=== PATIENT | female | born 1980 | race Two or more races ===

== ENCOUNTER 2018-10-07 17:42 | Emergency (ER) | payer SELFPAY ==
[~2018-10-07] VITALS: Ht 165.1 cm; Wt 76.2 kg
[2018-10-07 17:50] VITALS: BP 139/87
[2018-10-07 18:00] VITALS: BP 139/87
--- NOTE | 2018-10-07 18:46 | Emergency Room Report ---
History of Present Illness General Chief Complaint: General Complaint Source: Patient Present Illness HPI 38-year-old female patient presents ER complaining of headache and tingling sensation over the left lower half of her face. Denies history of stroke or heart disease. Denies taking blood thinners. Denies fever, chest pain, shortness of breath. Reports symptoms of been present for one day. Reports took Tylenol for pain symptoms. Denies vomiting or vision changes. Denies photophobia or phonophobia. Reports headache over the frontal sinuses. Denies runny nose. Denies neck pain. Denies abdominal pain. Denies sore throat, tooth pain, facial swelling. Allergies: Coded Allergies: No Known Allergies (Unverified , 10/07/18) Patient History Past Medical History: see triage record Last Menstrual Period: 09/02/18 Reviewed Nursing Documentation: PMH: Agreed; PSxH: Agreed Nursing Documentation-PMH Past Medical History: No Stated History Review of Systems All Other Systems: negative except mentioned in HPI Physical Exam Vital Signs Date Time Temp Pulse Resp B/P (MAP) Pulse Ox O2 Delivery O2 Flow Rate FiO2 10/07/18 17:50 98.1 85 18 139/87 98 Room Air Sp02 EP Interpretation: reviewed, normal General Appearance: well appearing, no apparent distress, alert, GCS 15, non- toxic Head: normocephalic, atraumatic, other - frontal sinuses tender to palpation bilaterally, no maxillary sinus tenderness to palpation Eyes: bilateral eye normal inspection, bilateral eye PERRL, bilateral eye EOMI ENT: hearing grossly normal, normal pharynx, no angioedema, normal voice, TMs + canals normal, uvula midline, moist mucus membranes, other - no tenderness to palpation of teeth, no gum erythema or edema Neck: full range of motion, no bony tend Respiratory: lungs clear, normal breath sounds, no rhonchi, no respiratory distress, no accessory muscle use, no wheezing, speaking full sentences Cardiovascular #1: regular rate, rhythm, no edema Musculoskeletal: back normal, digits/nails normal, gait/station normal, normal range of motion, non-tender Neurologic: alert, oriented x3, responsive, director telecommunications III-XII nml as tested, motor strength/tone normal, SLR negative, sensory intact, cerebellar normal, normal gait, speech normal Psychiatric: mood/affect normal Skin: no rash Medical Decision Making PA Attestation Dr. Allison is my supervising Physician whom patient management has been discussed with. Diagnostic Impression: Primary Impression: Sinus headache ER Course Pt. presents to the ED c/o headache and tingling over left lower portion of face. Ddx considered but are not limited to migraine, cluster headache, tension headache, sinus headache, sinusitis, trigeminal neuralgia, tooth infection, temporal arteritis, otitis media, otitis externa., Vieira's palsy. negative Kernig, negative Brudzinski, patient afebrile, low suspicion for meningitis. cranial nerves intact as tested, no focal deficits, no facial droop, low suspicion for vieira's palsy or cerebrovascular event, does not require further workup or labs at this time. no tenderness to palpation over temporal arteries, no vision changes, patient afebrile, low suspicion for temporal arteritis. Vital signs: are WNL, pt. is afebrile ER COURSE: physical exam shows tenderness to palpation over frontal sinuses. Likely sinusitis causing headache. Symptoms likely related to sinus symptoms. Does not require abx at this time. Provide patient with medication. Follow-up with dentist. Follow with primary care provider. Discuss further treatment and referral. ER precautions given. DISCHARGE: At this time pt is stable for d/c to home. Patient is resting comfortably, in no acute distress, nontoxic appearing, talking without difficulty. Patient to take medications as instructed Will provide with patient care instructions and any necessary prescriptions. Care plan and follow-up instructions provided. Patient instructed to follow-up with primary care provider in 3 - 5 days. Patient questions asked and answered. Patient reports understanding and agreement to treatment plan. ER precautions given. Patient instructed to return to ER immediately for any new or worsening of symptoms including but not limited to increasing SOB, persistent fever, chest pain, intractable vomiting. - Please note that this Emergency Department Report was dictated using [employer]wall[employer] layer technology software, occasionally this can lead to erroneous entry secondary to interpretation by the dictation equipment. Last Vital Signs Date Time Temp Pulse Resp B/P (MAP) Pulse Ox O2 Delivery O2 Flow Rate FiO2 10/07/18 18:00 85 18 Room Air 10/07/18 18:00 98.1 139/87 99 Disposition: HOME, SELF-CARE Condition: Stable Scripts Loratadine (CLARITIN) 10 Mg Capsule 10 MG ORAL DAILY, #30 CAP Prov: Mohan Nettles 10/07/18 Fluticasone Propionate* (FLUTICASONE PROPIONATE*) 16 Gm [place].susp 1 SPRAY NASAL TWICE A DAY, #16 GM Prov: Mohan Nettles 10/07/18 Guaifen/Phenyleph/Acetaminophn (Sudafed PE Pressure+Pain+Mucus) 1 Each Tablet 1 EACH PO TID, #24 TAB Prov: Mohan Nettles 10/07/18 Patient Instructions: Paresthesia, [id number], Sinus Headache, [id number] Additional Instructions: Followup with primary care provider in 3 -5 days. Take medications as directed. Patient questions asked and answered. ER precautions given, patient instructed to return to ER immediately for any new or worsening of symptoms. Mohan Nettles Oct 07, 2018 18:46
[2018-10-07] MEDS ORDERED: Acetaminophen 500mg (ES) tab ORAL ONE (19:00)
[2018-10-07] MEDS ORDERED: FLUTICASONE PRO16 G1 NASAL (19:02)
[2018-10-07] MEDS ORDERED: SUDAFED PE PRE1 EAC3 PO (19:02)
[2018-10-07] MEDS ORDERED: CLARITIN10 M2 ORAL (19:02)
[2018-10-07 19:15] VITALS: BP 139/87
== END 2018-10-08 07:22 | disposition home or self-care (01) ==
LOC: EMR 18:34
DX: G44.89 Other headache syndrome (principal); R20.0 Anesthesia of skin; F17.200 Nicotine dependence, unspecified, uncomplicated
CPT/HCPCS: 99283